=== PATIENT | female | born 1965 | race Caucasian/White ===

== ENCOUNTER 2017-08-04 11:35 | Inpatient (IN) | payer MEDICARE, MEDICAID ==
[2017-08-04 12:37] LABS: PTT 30.3 SEC (22.9-36.1)
[2017-08-04] MEDS ORDERED: Acetaminophen 500 MG TAB ONE (12:41)
[2017-08-04] MEDS ORDERED: Benzocaine 20% Spray 60 ML CAN ONE (12:41)
--- NOTE | 2017-08-04 12:41 | RAD ---
FRONTAL VIEW CHEST: COMPARISON: 04/20/17. INDICATION: Dyspnea. FINDINGS: There is no consolidation, effusion, or pneumothorax. Cardiomediastinal silhouette is accentuated b y portable technique. There is slight interstitial perihilar prominence bilaterally. IMPRESSION: 1. No lobar consolidation. 2. Mild perihilar interstitial prominence may be on the basis of edema. Correlate clinically. As necessary, imaging followup may be obtained. POS: ALYSSA
[2017-08-04 12:49] LABS: Lactic Acid - Sepsis 3.6 mmol/L (0.5-2.2)
[2017-08-04 12:51] LABS: Hematocrit 47.3 % (36.0-47.0); Mean Platelet Volume 8.4 fL (7.4-10.4); Red Blood Cell (RBC) Count 4.77 mill/uL (4.20-5.40); White Blood Cell (WBC) Count 17.1 thou/uL (4.8-10.8)
[2017-08-04 12:55] LABS: ALT (SGPT) 16 U/L (8-55); AST (SGOT) 13 U/L (5-34); Alkaline Phosphatase 105 U/L (40-150); Anion Gap 12 mmol/L (10-20); BUN (Urea Nitrogen) 12 mg/dL (9.8-20.1); Bilirubin, Total 0.6 mg/dL (0.2-1.2); CK (CPK) 38 U/L (29-168); Calc. Creatinine Clearance 0 mL/min (70-130); Calcium 9.7 mg/dL (7.8-10.44); Carbon Dioxide 25 mmol/L (22-29); Chloride 103 mmol/L (98-107); Estimated GFR-MDRD 69; Globulin 3.1 g/dL (2.4-3.5); Lipase 4 U/L (8-78); Magnesium 1.6 mg/dL (1.6-2.6); Protein, Total 6.8 g/dL (6.0-8.3)
[2017-08-04 12:59] LABS: Troponin I Less than 0.010 ng/mL (< 0.028)
[2017-08-04 13:04] LABS: Band 22 % (5-11); Neutrophil 70 % (42-75)
[2017-08-04] MEDS ORDERED: methylPREDNISolone Sod Succ/PF 125 MG/2 ML VIAL ONE (13:20)
[2017-08-04] MEDS ORDERED: Water For Inject, Bacteriostat 30 ML ONE (13:21)
[2017-08-04] MEDS ORDERED: Magnesium 2 GM/NS 0.9% 50 ML 2 GM in Premix Bag 1 BAG IVPB SCH ×4 (13:45)
[2017-08-04] MEDS ORDERED: Lidocaine Viscous Sol 2% 15 ml UD Cup ONE ×2 (15:11→15:12)
[2017-08-04] MEDS ORDERED: Mag-Al 1200 mg/1200 mg/30 ML UDCUP ONE (15:11)
[2017-08-04 15:29] LABS: Bilirubin Negative (Negative); Blood, Urine Small (Negative); Glucose, Urine (Dipstick) Negative (Negative); Ketone, Urine Negative (Negative); Nitrite Negative (Negative); Protein, Urine (Dipstick) Negative (Neg-Trace); Urobilinogen 0.2 mg/dL (0.2-1.0)
[2017-08-04 15:31] LABS: Hyaline Casts/LPF 4-6 HYALINE CAST LPF (0-3 Hyaline); Squamous Epithelial 0-3 HPF (0-3)
[2017-08-04 15:41] LABS: Bacteria/HPF 1+ HPF (None Seen)
[2017-08-04 16:27] VITALS: BMI 30.9
[2017-08-04] MEDS ORDERED: Albuterol Sulfate 2.5 mg/3 ml Neb NEB PRN (16:39)
[2017-08-04] MEDS ORDERED: Acetaminophen 325 MG TAB PO PRN ×2 (16:40→16:41)
[2017-08-04] MEDS: Sodium Chloride 0.9% 1,000 ML IV SCH ×2 (16:56→17:59)
[2017-08-04] MEDS ORDERED: Cefepime 2 GM, Admixture Fee 1 EACH in Sodium Chloride 0.9% 100 ML IVPB SCH (17:00)
[2017-08-04] MEDS: traZODone HCl 50 MG TAB PO SCH (20:30)
[2017-08-04] MEDS: clonazePAM 0.5 MG TAB PO SCH (20:30)
[2017-08-04] MEDS: busPIRone HCl 5 MG TAB PO SCH (20:30)
[2017-08-04] MEDS: Benzonatate 100 MG CAP PO SCH (20:31)
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
[2017-08-04] MEDS: Cefepime 2 GM, Admixture Fee 1 EACH in Sodium Chloride 0.9% 100 ML IVPB SCH (22:36)
[2017-08-05] MEDS: Sodium Chloride 0.9% 1,000 ML IV SCH ×4 (02:35→22:43)
[2017-08-05 05:33] LABS: ALT (SGPT) 13 U/L (8-55); AST (SGOT) 12 U/L (5-34); Alkaline Phosphatase 89 U/L (40-150); Anion Gap 7 mmol/L (10-20); BUN (Urea Nitrogen) 12 mg/dL (9.8-20.1); Bilirubin, Total 0.2 mg/dL (0.2-1.2); Calc. Creatinine Clearance 125 mL/min (70-130); Calcium 9.1 mg/dL (7.8-10.44); Carbon Dioxide 23 mmol/L (22-29); Chloride 116 mmol/L (98-107); Estimated GFR-MDRD 88; Globulin 2.6 g/dL (2.4-3.5); Protein, Total 5.5 g/dL (6.0-8.3)
[2017-08-05 05:56] LABS: Band 36 % (5-11); Hematocrit 43.1 % (36.0-47.0); Mean Platelet Volume 8.6 fL (7.4-10.4); Neutrophil 58 % (42-75); Red Blood Cell (RBC) Count 4.35 mill/uL (4.20-5.40); White Blood Cell (WBC) Count 15.8 thou/uL (4.8-10.8)
[2017-08-05] MEDS: Cefepime 2 GM, Admixture Fee 1 EACH in Sodium Chloride 0.9% 100 ML IVPB SCH ×3 (07:21→22:42)
[2017-08-05] MEDS: busPIRone HCl 5 MG TAB PO SCH ×2 (08:51→20:35)
[2017-08-05] MEDS: Acetaminophen/Codeine 30-300mg Tablet PO PRN ×4 (08:51→20:34)
[2017-08-05] MEDS: clonazePAM 0.5 MG TAB PO SCH ×2 (08:51→20:35)
[2017-08-05] MEDS: guaiFENesin ER 600 MG TAB PO SCH ×2 (08:52→20:34)
[2017-08-05] MEDS: Benzonatate 100 MG CAP PO SCH ×3 (09:00→20:33)
[2017-08-05] MEDS ORDERED: FLU VACC QS2017-18 36 mo. & older 0.5 ML SYRINGE IM ONE (09:00)
--- NOTE | 2017-08-05 10:21 | RAD ---
ONE VIEW CHEST: HISTORY: Pneumonia. COMPARISON: 08/04/2017 FINDINGS: Worsening of bibasilar opacities. Stable cardiac silhouette. No significant pleural fluid or pneum othorax. IMPRESSION: Bibasilar opacities. Continued surveillance. POS: EFRAINH
--- NOTE | 2017-08-05 14:24 | PQF ---
DATE: 08-08-17 ATTN: JOSE STEVENS / DR. COSTA JAIN Please exercise your independent, professional judgment in responding to the clarification form. Clinical indicators are provided on the bottom of this form for your review Please check appropriate box(s) to clarify if the following diagnosis has been ruled in our ruled out: SEVERE SEPSIS (CDI/Coding list diagnosis here) [ x ] Ruled in diagnosis [ x ] Continue to treat [ ] Resolved [ ] Ruled out diagnosis [ ] Other diagnosis [ ] Unable to determine In addition, please specify: Present on Admission (POA): [ x ] Yes [ ] No [ ] Unable to determine For continuity of documentation, please document condition throughout progress notes and discharge summary. Thank You. CLINICAL INDICATORS - SIGNS / SYMPTOMS / LABS ER DIAGNOSIS: SEVERE SEPSIS, PNEUMONIA WBC: 08-04-17: 17.1 08-05-17: 15.8 BANDS: 08-04-17: 22 08-05-17: 36 LACTIC ACID: 08-04-17: 3.6 08-05-17: 2.4 GLUCOSE ON A NON DIABETIC: 08-04-17: 123 08-05-17: 158 RISK FACTORS: H&P: UPPER RESPIRATORY INFECTION, PROBABLE PNEUMONIA, HX OF COPD, TREATMENTS: (08-04-17) MAXIPIME, (08-05-17) LEVAQUIN (08-04-17) IVF (This form is maintained as a part of the permanent medical record) 2014 [employer] All Rights Reserved [email or web address] Office: [phone] [facility]
[2017-08-05] MEDS ORDERED: predniSONE 20 MG TAB PO SCH (15:45)
[2017-08-05] MEDS: traZODone HCl 50 MG TAB PO SCH (20:35)
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
[2017-08-06] MEDS: Acetaminophen/Codeine 30-300mg Tablet PO PRN ×5 (01:46→18:47)
[2017-08-06 05:17] LABS: Anion Gap 9 mmol/L (10-20); BUN (Urea Nitrogen) 12 mg/dL (9.8-20.1); Calc. Creatinine Clearance 134 mL/min (70-130); Calcium 8.7 mg/dL (7.8-10.44); Carbon Dioxide 21 mmol/L (22-29); Chloride 115 mmol/L (98-107); Estimated GFR-MDRD Greater than 90
[2017-08-06 05:36] LABS: Band 10 % (5-11); Hematocrit 36.2 % (36.0-47.0); Neutrophil 74 % (42-75); Reactive Lymphocytes 1 % (0-10); Red Blood Cell (RBC) Count 3.79 mill/uL (4.20-5.40); White Blood Cell (WBC) Count 15.1 thou/uL (4.8-10.8)
[2017-08-06] MEDS: Cefepime 2 GM, Admixture Fee 1 EACH in Sodium Chloride 0.9% 100 ML IVPB SCH ×2 (05:54→16:13)
[2017-08-06] MEDS: clonazePAM 0.5 MG TAB PO SCH ×2 (07:59→21:05)
[2017-08-06] MEDS: Benzonatate 100 MG CAP PO SCH ×3 (07:59→21:05)
[2017-08-06] MEDS: busPIRone HCl 5 MG TAB PO SCH ×2 (07:59→21:05)
[2017-08-06] MEDS: guaiFENesin ER 600 MG TAB PO SCH ×2 (07:59→21:05)
[2017-08-06] MEDS: predniSONE 20 MG TAB PO SCH (07:59)
[2017-08-06] MEDS: Sodium Chloride 0.9% 1,000 ML IV SCH ×2 (08:01→17:50)
--- NOTE | 2017-08-06 08:07 | RAD ---
PORTABLE CHEST ONE VIEW: Date: 08-06-17 Time: 5:04 a.m. History: Pneumonia. FINDINGS/IMPRESSION: Comparison made with exam of previous day. The heart size is normal. Bilateral infiltrates are again seen. No pneumothorax or large effusions i dentified. POS: H
--- NOTE | 2017-08-06 08:22 | PRG ---
DATE OF SERVICE: 08/06/2017 SUBJECTIVE: The patient is sitting up in bed. She is eating breakfast, she feels much better. She does not have O2 on. PHYSICAL EXAMINATION: VITAL SIGNS: Her heart rate is still high at 120, but her blood pressure is good at 120 GENERAL: Upon evaluation, she is awake, alert, and oriented to person, place, and time. She is afe brile. NECK: Supple with no increased JVP or carotid bruit. Carotid had good upstroke with no thyromegaly . COR: Regular rate and rhythm, but tachycardic. CHEST: Symmetrical with a few wheezing. ABDOMEN: Soft, nontender with normoactive bowel sounds. There is no bruit or organomegaly. EXTREMITIES: No edema or cyanosis. She had palpable pedal pulses. SKIN: There is no evidence of ulcer lesion, or rash. NEUROLOGIC: She is awake and alert and oriented to person, place, and time. LABORATORY DATA: Her white blood cells 15.1. Her H\T\H is 11.8 and 36.2. Her platelet count is 24 2. Her glucose is 140. Chest x-ray is pending. ASSESSMENT: 1. Pneumonia. 2. Chronic obstructive pulmonary disease. 3. Bipolar. 4. Anxiety disorder. PLAN: 1. The patient will continue as is. 2. We will follow up with a CBC and CMP in the morning. 3. I have encouraged patient to get out of bed. 4. The case discussed with Dr. aMurice Garza and he does agree with the plan.
[2017-08-06] MEDS: Ondansetron HCl/PF 4 MG/2 ML Vial SLOW IVP PRN (10:58)
[2017-08-06] MEDS: Cefdinir 300 MG CAP PO SCH (21:06)
[2017-08-06] MEDS: traZODone HCl 50 MG TAB PO SCH (21:06)
[2017-08-07] MEDS: Acetaminophen/Codeine 30-300mg Tablet PO PRN ×5 (00:52→20:40)
[2017-08-07] MEDS: Sodium Chloride 0.9% 1,000 ML IV SCH ×3 (04:40→11:21)
[2017-08-07 05:17] LABS: ALT (SGPT) 9 U/L (8-55); AST (SGOT) 8 U/L (5-34); Alkaline Phosphatase 74 U/L (40-150); Anion Gap 9 mmol/L (10-20); BUN (Urea Nitrogen) 9 mg/dL (9.8-20.1); Bilirubin, Total 0.2 mg/dL (0.2-1.2); Calc. Creatinine Clearance 149 mL/min (70-130); Calcium 8.2 mg/dL (7.8-10.44); Carbon Dioxide 21 mmol/L (22-29); Chloride 114 mmol/L (98-107); Estimated GFR-MDRD Greater than 90; Globulin 2.3 g/dL (2.4-3.5)
[2017-08-07 05:28] LABS: Hematocrit 35.7 % (36.0-47.0); Mean Platelet Volume 8.2 fL (7.4-10.4); Neutrophil 70 % (42-75); Red Blood Cell (RBC) Count 3.68 mill/uL (4.20-5.40); White Blood Cell (WBC) Count 16.5 thou/uL (4.8-10.8)
[2017-08-07] MEDS: Potassium Chloride 20 MEQ TAB PO SCH (08:33)
[2017-08-07] MEDS: guaiFENesin ER 600 MG TAB PO SCH ×2 (08:33→20:40)
[2017-08-07] MEDS: clonazePAM 0.5 MG TAB PO SCH ×2 (08:34→20:39)
[2017-08-07] MEDS: Cefdinir 300 MG CAP PO SCH ×2 (08:34→20:40)
[2017-08-07] MEDS: predniSONE 20 MG TAB PO SCH (08:34)
[2017-08-07] MEDS: Benzonatate 100 MG CAP PO SCH ×3 (08:34→20:41)
[2017-08-07] MEDS: busPIRone HCl 5 MG TAB PO SCH ×2 (08:34→20:41)
[2017-08-07] MEDS: Ondansetron HCl/PF 4 MG/2 ML Vial SLOW IVP PRN (09:58)
[2017-08-07] MEDS ORDERED: Polyethylene Glycol 3350 17 GM Packet PO SCH (11:15)
--- NOTE | 2017-08-07 15:42 | PRG ---
DATE OF SERVICE: 08/07/2017 SUBJECTIVE: Ms. Mott says she is feeling better. OBJECTIVE: VITAL SIGNS: She is afebrile, heart rate is 93, respiratory rate is 20, oximetry is 97%, blood pres sure 120/86. LUNGS: Clear. HEART: Regular rhythm. LABORATORY: White count 16.5, hemoglobin 11.9, platelets 171,000. Sodium 141, potassium 3.2, chlor stew 114, bicarb 21, BUN 9, creatinine 0.6, glucose 111, and albumin is 2.7. IMPRESSION: 1. Chronic obstructive pulmonary disease exacerbation with pneumonia 2. Ongoing tobacco use up until this admission. PLAN: Continue current care.
[2017-08-07] MEDS: traZODone HCl 50 MG TAB PO SCH (20:39)
[2017-08-08] MEDS: Acetaminophen/Codeine 30-300mg Tablet PO PRN ×2 (01:19→06:54)
[2017-08-08 06:43] LABS: Anion Gap 9 mmol/L (10-20); BUN (Urea Nitrogen) 10 mg/dL (9.8-20.1); Calc. Creatinine Clearance 157 mL/min (70-130); Calcium 8.1 mg/dL (7.8-10.44); Carbon Dioxide 27 mmol/L (22-29); Chloride 109 mmol/L (98-107); Estimated GFR-MDRD Greater than 90
[2017-08-08 06:44] LABS: Hematocrit 34.7 % (36.0-47.0); Mean Platelet Volume 7.6 fL (7.4-10.4); Red Blood Cell (RBC) Count 3.67 mill/uL (4.20-5.40); White Blood Cell (WBC) Count 12.5 thou/uL (4.8-10.8)
[2017-08-08 07:48] LABS: Band 5 % (5-11); Metamyelocyte 1 % (0-0); Myelocyte 2 % (0-0); Neutrophil 52 % (42-75); Reactive Lymphocytes 9 % (0-10)
--- NOTE | 2017-08-08 08:16 | RAD ---
RADIOGRAPH CHEST 1 VIEW: Date: 08-08-17 Time: 6:30 a.m. HISTORY: 52-year-old female with pneumonia. Follow up. COMPARISON: 08-06-17 FINDINGS: Bilateral patchy airspace densities, greatest at the lower lung zones, have worsened. A few small no dular infiltrates in the upper and midlung zones are minimally worse. No cardiomegaly. No pneumothor ax. IMPRESSION: Interval worsening of bilateral lower lung zone infiltrates, evidence for worsening of pneumonia. ROLANDO POS: ALYSSA
[2017-08-08 08:18] VITALS: BP 140/90; TEMP 98.1
[2017-08-08] MEDS ORDERED: Potassium Chloride 20 MEQ TAB PO SCH (08:30)
[2017-08-08] MEDS: Benzonatate 100 MG CAP PO SCH (08:32)
[2017-08-08] MEDS: predniSONE 20 MG TAB PO SCH (08:32)
[2017-08-08] MEDS: clonazePAM 0.5 MG TAB PO SCH (08:32)
[2017-08-08] MEDS: busPIRone HCl 5 MG TAB PO SCH (08:32)
[2017-08-08] MEDS: Potassium Chloride 20 MEQ TAB PO SCH (08:32)
[2017-08-08] MEDS: Cefdinir 300 MG CAP PO SCH (08:32)
[2017-08-08] MEDS: guaiFENesin ER 600 MG TAB PO SCH (08:33)
[2017-08-08] MEDS ORDERED: Polyethylene Glycol 3350 17 GM Packet PO SCH (09:00)
--- NOTE | 2017-08-08 09:52 | DIS ---
FINAL DIAGNOSES: 1. Pneumonia. 2. Chronic obstructive pulmonary disease. 3. Bipolar. 4. Anxiety. 5. Insomnia. COMPLICATIONS: None. PROCEDURES: None. CONSULTANTS: Dr. Phan. HOSPITAL COURSE: This is a pleasant female who presents with upper respiratory infection. She also was found to have hypotension and possible sepsis and therefore transferred to [facility] after given 2 l iters of fluid in the ER. The patient was admitted with IV antibiotics, IV fluids and breathing maximo atments. Dr. Phan was asked to see the patient in consultation. She did have obviously a chest x- ray which showed bibasilar opacities. The patient's home medications were resumed. The patient's b lood pressure remained normal. She was later transferred out of [facility] to the 4th floor. The patient was eating good. Her vital signs were stable. She was switched to antibiotics by mouth. Her lab upon admission showed white blood cells 17.1 upon dismissal was 12.5. Her H\T\H is normal. Her CMP showed her sodium 142, potassium 3.7, BUN and creatinine were normal and upon dismissal, her potass ium was 3.2; however, this was replenished before she left. The patient's hospital course was unrem arkable. She had no chest pain, her breathing was okay. Her vital signs were stable. She felt muc h better. She was not running a temperature and she was sent home on 08/08/2017 stable condition. DIET: Regular diet. ACTIVITIES: As tolerated. DISCHARGE MEDICATIONS: 1. Levaquin 500 mg every day for 10 days. 2. Medrol Dosepak. 3. Mucinex 1200 mg q.12 hours. 4. Protonix 40 mg every day. 5. MiraLax daily. 6. Potassium 20 mEq was discontinued. 7. Seroquel 100 mg at bedtime. 8. Trazodone 100 mg at bedtime. FOLLOWUP: She will follow up with Radha in 1 week or prior to that if she has any complications. The patient verbalized understanding and all questions answered to the patient's satisfaction. Total time spent with this patient after reviewing the chart and seeing the patient and discharge pl anning was 30 minutes.
== END 2017-08-08 09:52 | disposition home or self-care (01) | DRG 871 ==
LOC: ERS 11:35 → IMCU/EMU 14:42 → T4-A 08-06 18:37
PROVIDERS: ADMIT Specialist; ATTEND Specialist
DX: A41.9 Sepsis, unspecified organism (principal); J18.9 Pneumonia, unspecified organism; E87.2 Acidosis; I95.9 Hypotension, unspecified; J44.0 Chronic obstructive pulmonary disease with (acute) lower respiratory infection; E86.0 Dehydration; J44.1 Chronic obstructive pulmonary disease with (acute) exacerbation; F41.9 Anxiety disorder, unspecified; F31.9 Bipolar disorder, unspecified; M54.9 Dorsalgia, unspecified; M25.569 Pain in unspecified knee; F17.210 Nicotine dependence, cigarettes, uncomplicated; G47.00 Insomnia, unspecified; R65.20 Severe sepsis without septic shock; Z23 Encounter for immunization
CPT/HCPCS: 36415; 71010; 80048; 80053; 81003; 81015; 82553; 83605; 83690; 83735; 84484; 85007; 85025; 85027; 85610; 85730; 87040; 87070; 87077; 87086; 87186; 87205; 93005; 94640; 94760; 96361; 96365; 96367; 96375; 99292; A4216; J0692; J1956; J2405; J2930; J3475; J7050; J7506; J7620

== ENCOUNTER 2017-10-20 11:51 | Emergency (ER) | payer MEDICARE, MEDICAID ==
[2017-10-20] MEDS ORDERED: HYDROcodone/Acetaminophen 5/325 mg Tablet ONE ×2 (12:17→13:11)
--- NOTE | 2017-10-20 14:15 | RAD ---
RIGHT HAND THREE VIEWS: HISTORY: Injury with pain. FINDINGS: There is transverse fracture involving the distal radius, which appears to be mildly comminuted. The carpals appear intact. The metacarpals and phalanges appear intact. IMPRESSION: Fractured distal radius. POS: EFRAIN
--- NOTE | 2017-10-20 14:16 | RAD ---
RIGHT WRIST TWO VIEWS: HISTORY: Injury with pain to right wrist. FINDINGS: There is a predominantly transverse but mildly comminuted fracture involving the distal radius. There is an associated fracture of the ulnar styloid. The carpals appear intact. IMPRESSION: Fractured distal radius and ulna. POS: [facility]
--- NOTE | 2017-10-20 14:17 | RAD ---
RIGHT FOREARM TWO VIEWS: HISTORY: Fell with injury to right forearm. FINDINGS: There is a transverse fracture of the distal radius and an associated fracture of the ulnar styloid. The mid and proximal radius and ulna appear intact. IMPRESSION: Fractures, distal radius and ulna. POS: EFRAIN
== END 2017-10-20 13:14 | disposition home or self-care (01) ==
LOC: ERS 11:51
DX: S52.531A Colles' fracture of right radius, initial encounter for closed fracture (principal); F41.9 Anxiety disorder, unspecified; F32.9 Major depressive disorder, single episode, unspecified; F17.210 Nicotine dependence, cigarettes, uncomplicated; Z87.01 Personal history of pneumonia (recurrent); W10.9XXA Fall (on) (from) unspecified stairs and steps, initial encounter
CPT/HCPCS: 29125

== ENCOUNTER 2019-04-20 11:24 | Outpatient (CLI) | payer MEDICARE, MEDICAID ==
--- NOTE | 2019-04-20 13:01 | MMO ---
Bilateral MAMMO Bilat Screen [facility]. CLINICAL HISTORY: Patient is 53 years old and is seen for screening. The patient has the following family history of breast cancer: mother, at age 67. The patient has no personal history of cancer. VIEWS: The views performed were: bilateral craniocaudal with tomosynthesis and bilateral mediolateral oblique with tomosynthesis. FILMS COMPARED: The present examination has been compared to a prior imaging study performed at [facility] on 02/05/2012. MAMMOGRAM FINDINGS: There are scattered fibroglandular densities. There are no suspicious masses, suspicious calcifications, or new areas of architectural distortion. IMPRESSION: THERE IS NO MAMMOGRAPHIC EVIDENCE OF MALIGNANCY. A ROUTINE FOLLOW-UP MAMMOGRAM IN 1 YEAR IS RECOMMENDED. THE RESULTS OF THIS EXAM WERE SENT TO THE PATIENT. ACR BI-RADS Category 1 - Negative MAMMOGRAPHY NOTE: 1. A negative mammogram report should not delay a biopsy if a dominant of clinically suspicious mass is present. 2. Approximately 10% to 15% of breast cancers are not detected by mammography. 3. Adenosis and dense breasts may obscure an underlying neoplasm.
== END 2019-04-20 11:25 | disposition home or self-care (01) ==
LOC: BICMAMMO 11:24
PROVIDERS: ATTEND Specialist
DX: Z12.31 Encounter for screening mammogram for malignant neoplasm of breast (principal); Z80.3 Family history of malignant neoplasm of breast
CPT/HCPCS: 77063; 77067

== ENCOUNTER 2022-06-10 07:27 | Inpatient (IN) | payer MEDICARE, MEDICAID ==
[2022-06-10] MEDS ORDERED: Ketorolac Tromethamine 30 MG/ML VIAL ONE (07:45)
[2022-06-10] MEDS ORDERED: Albuterol Sulfate 2.5 mg/3 ml Neb ONE (08:16)
[2022-06-10] MEDS ORDERED: Ipratropium Bromide 2.5 ml Neb ONE (08:16)
[2022-06-10 08:35] LABS: #Lymphocytes 1.7 thou/uL (1.20-3.40); #Monocytes 0.5 thou/uL (0.11-0.59); #Neutrophils 6.7 thou/uL (1.40-6.50); %Eosinophils 0.2 % (0.0-10.0); %Lymphocytes 19.1 % (21.0-51.0); %Monocytes 5.5 % (0.0-10.0); %Neutrophils 75.2 % (42.0-75.0); Hemoglobin 15.7 g/dL (12.0-16.0); Mean Corpuscular HGB CONC 32.4 g/dL (32.0-36.0); Mean Corpuscular Hemoglobin 30.5 pg (27.0-31.0); Mean Corpuscular Volume 94.1 fL (78.0-98.0); Mean Platelet Volume 8.1 fL (7.4-10.4); Platelet Count 186 thou/uL (130-400); RBC Distribution Width 12.7 % (11.5-14.5); Red Blood Cell (RBC) Count 5.17 mill/uL (4.20-5.40); White Blood Cell (WBC) Count 8.9 thou/uL (4.8-10.8)
[2022-06-10 08:56] LABS: SARS-CoV-2 NAA Rapid Test Not Detected (NotDetected)
[2022-06-10 08:58] LABS: ALT (SGPT) 99 U/L (8-55); AST (SGOT) 63 U/L (5-34); Albumin 3.7 g/dL (3.5-5.0); Alkaline Phosphatase 143 U/L (40-110); Anion Gap 18 mmol/L (10-20); BUN (Urea Nitrogen) 8 mg/dL (9.8-20.1); Bilirubin, Total 0.4 mg/dL (0.2-1.2); Calc. Creatinine Clearance 0 mL/min (70-130); Calcium 8.5 mg/dL (7.8-10.44); Carbon Dioxide 23 mmol/L (22-29); Chloride 97 mmol/L (98-107); Estimated GFR 89; Globulin 3.6 g/dL (2.4-3.5); Glucose 113 mg/dL (70-105); Potassium 4.2 mmol/L (3.5-5.1); Protein, Total 7.3 g/dL (6.0-8.3); Sodium 134 mmol/L (136-145)
[2022-06-10] MEDS ORDERED: Dexamethasone 10 MG/ML VIAL ONE (10:53)
[2022-06-10] MEDS ORDERED: Acetaminophen 500 MG TAB ONE (10:54)
[2022-06-10] MEDS ORDERED: Iopamidol-370 76% 500 ML 1 ML ONE (15:42)
[2022-06-10] MEDS ORDERED: Acetaminophen 325 MG TAB PO PRN (16:45)
[2022-06-10] MEDS ORDERED: Sodium Chloride 0.9% 1,000 ML IV SCH (16:45)
[2022-06-10] MEDS ORDERED: Ondansetron ODT 4 MG TAB SL PRN (16:45)
[2022-06-10] MEDS ORDERED: Ondansetron PF 4 MG/2 ML Vial IVP PRN (16:45)
[2022-06-10 17:39] VITALS: BMI 39.6
[2022-06-10] MEDS ORDERED: Dextrose 5% in Water 1,000 ML IV PRN (20:15)
[2022-06-10] MEDS ORDERED: Dextrose 50% Abboject 50 ML SYRINGE IVP PRN (20:15)
[2022-06-10] MEDS ORDERED: HumaLOG 300 UNITS/3 ML VIAL SC PRN (20:15)
[2022-06-10] MEDS: Doxepin HCl 25 MG CAP PO SCH (20:53)
[2022-06-10] MEDS: ALPRAZolam 0.25 MG TAB PO SCH (20:53)
[2022-06-10] MEDS: Empagliflozin 25 MG TAB PO SCH (20:58)
[2022-06-10] MEDS ORDERED: Budesonide 0.5 MG/2 ML NEB NEB SCH (22:00)
[2022-06-10] MEDS: Nicotine 14 MG PATCH TOP SCH (22:24)
[2022-06-11] MEDS: Promethazine 25 MG TAB PO PRN (06:24)
[2022-06-11] MEDS: Budesonide 0.5 MG/2 ML NEB NEB SCH ×2 (06:34→18:26)
[2022-06-11 07:50] LABS: #Lymphocytes 1.6 thou/uL (1.20-3.40); #Monocytes 0.7 thou/uL (0.11-0.59); #Neutrophils 6.2 thou/uL (1.40-6.50); %Basophils 0.3 % (0.0-1.0); %Eosinophils 0.4 % (0.0-10.0); %Lymphocytes 18.5 % (21.0-51.0); %Monocytes 7.8 % (0.0-10.0); %Neutrophils 73.1 % (42.0-75.0); Mean Corpuscular HGB CONC 31.5 g/dL (32.0-36.0); Mean Corpuscular Hemoglobin 29.8 pg (27.0-31.0); Mean Corpuscular Volume 94.6 fL (78.0-98.0); Mean Platelet Volume 8.1 fL (7.4-10.4); Platelet Count 191 thou/uL (130-400); RBC Distribution Width 12.9 % (11.5-14.5); Red Blood Cell (RBC) Count 5.02 mill/uL (4.20-5.40); White Blood Cell (WBC) Count 8.5 thou/uL (4.8-10.8)
[2022-06-11 08:09] LABS: Hemoglobin A1c 9.9 % (4.0-6.0)
[2022-06-11 08:13] LABS: ALT (SGPT) 70 U/L (8-55); AST (SGOT) 33 U/L (5-34); Albumin 3.6 g/dL (3.5-5.0); Alkaline Phosphatase 116 U/L (40-110); Anion Gap 15 mmol/L (10-20); BUN (Urea Nitrogen) 12 mg/dL (9.8-20.1); Bilirubin, Direct 0.1 mg/dL (0.1-0.3); Bilirubin, Total 0.4 mg/dL (0.2-1.2); Calc. Creatinine Clearance 158 mL/min (70-130); Calcium 8.4 mg/dL (7.8-10.44); Carbon Dioxide 23 mmol/L (22-29); Chloride 103 mmol/L (98-107); Estimated GFR 102; Glucose 109 mg/dL (70-105); Potassium 4.1 mmol/L (3.5-5.1); Protein, Total 7.3 g/dL (6.0-8.3); Sodium 137 mmol/L (136-145)
[2022-06-11] MEDS ORDERED: Benzonatate 100 MG CAP PO PRN (08:15)
[2022-06-11 08:29] LABS: Free T4 (Free Thyroxine) 0.76 ng/dL (0.70-1.48)
[2022-06-11 08:30] LABS: T4 6.6 ug/dL (4.87-11.72)
[2022-06-11 08:45] LABS: HBCM Index 0.11 S/CO (0-0.79); HBSAg Index 0.33 S/CO (0-0.99); Hep A IgM AB Non-Reactive (NonReactive); Hep A IgM S/CO 0.15 S/CO (0-0.79); Hep B Surf Ag Non-Reactive S/CO (NonReactive); Hep C IgG Ab Non-Reactive (NonReactive); Hep C Index 0.15 S/CO (0-0.79); Hepatitis B Core IgM Abs Non-Reactive (NonReactive)
[2022-06-11] MEDS ORDERED: Empagliflozin 25 MG TAB PO SCH (09:00)
[2022-06-11] MEDS: guaiFENesin ER 600 MG TAB PO SCH ×2 (10:06→22:16)
[2022-06-11] MEDS: Aspirin Chewable 81 MG TAB PO SCH (10:06)
[2022-06-11] MEDS: ALPRAZolam 0.25 MG TAB PO SCH ×3 (10:06→22:16)
[2022-06-11] MEDS: methylPREDNISolone Sod Succ 40 MG VIAL IVP SCH ×3 (12:48→22:24)
[2022-06-11] MEDS: Acetaminophen 500 MG TAB PO PRN ×2 (16:01→22:19)
[2022-06-11] MEDS: Empagliflozin 25 MG TAB PO SCH (22:16)
[2022-06-11] MEDS: Doxepin HCl 25 MG CAP PO SCH (22:16)
[2022-06-11] MEDS: Nicotine 14 MG PATCH TOP SCH (22:17)
[2022-06-12] MEDS: methylPREDNISolone Sod Succ 40 MG VIAL IVP SCH ×4 (06:20→22:56)
[2022-06-12] MEDS: Budesonide 0.5 MG/2 ML NEB NEB SCH ×2 (06:22→19:07)
[2022-06-12] MEDS: ALPRAZolam 0.25 MG TAB PO SCH ×3 (09:43→20:19)
[2022-06-12] MEDS: Aspirin Chewable 81 MG TAB PO SCH (09:43)
[2022-06-12] MEDS: guaiFENesin ER 600 MG TAB PO SCH ×2 (09:43→20:19)
[2022-06-12] MEDS: Acetaminophen 500 MG TAB PO PRN ×2 (10:02→17:39)
[2022-06-12 15:31] LABS: ANA Symphony (Qualitative) Negative (Negative); ANA Symphony (Quantitative) 0.4 Ratio (< 0.7 Negative); EliA Vaculitis New Method **** NEW METHOD ****; Mitochondrial Ab 1.7 U/mL (<4 Negative); dsDNA IgG Antibody 5.3 IU/mL (<10 Negative)
[2022-06-12] MEDS: Empagliflozin 25 MG TAB PO SCH (20:19)
[2022-06-12] MEDS: Doxepin HCl 25 MG CAP PO SCH (20:19)
[2022-06-12] MEDS: SUMAtriptan Succinate 6 MG/0.5 ML VIAL SC PRN (20:19)
[2022-06-12] MEDS: Nicotine 14 MG PATCH TOP SCH (22:55)
[2022-06-13] MEDS: Acetaminophen 500 MG TAB PO PRN ×2 (00:39→09:31)
[2022-06-13] MEDS: SUMAtriptan Succinate 6 MG/0.5 ML VIAL SC PRN (05:12)
[2022-06-13] MEDS: methylPREDNISolone Sod Succ 40 MG VIAL IVP SCH (05:12)
[2022-06-13] MEDS: Promethazine 25 MG TAB PO PRN (06:20)
[2022-06-13] MEDS: Budesonide 0.5 MG/2 ML NEB NEB SCH (06:54)
[2022-06-13] MEDS: Aspirin Chewable 81 MG TAB PO SCH (08:05)
[2022-06-13] MEDS: ALPRAZolam 0.25 MG TAB PO SCH (08:05)
[2022-06-13] MEDS: guaiFENesin ER 600 MG TAB PO SCH (08:05)
[2022-06-13 08:20] VITALS: BP 147/95; TEMP 97.7
== END 2022-06-13 10:50 | disposition home or self-care (01) | DRG 441 ==
LOC: ERS 07:27 → 2SW 15:07 → OBSVTOIN 19:52
PROVIDERS: ADMIT Specialist; ATTEND Specialist
DX: K75.81 Nonalcoholic steatohepatitis (NASH) (principal); J96.21 Acute and chronic respiratory failure with hypoxia; J44.1 Chronic obstructive pulmonary disease with (acute) exacerbation; Z20.822 Contact with and (suspected) exposure to COVID-19; E11.9 Type 2 diabetes mellitus without complications; F41.9 Anxiety disorder, unspecified; F17.210 Nicotine dependence, cigarettes, uncomplicated; F31.9 Bipolar disorder, unspecified; G89.29 Other chronic pain; G47.00 Insomnia, unspecified; Z87.440 Personal history of urinary (tract) infections; Z90.49 Acquired absence of other specified parts of digestive tract; Z90.710 Acquired absence of both cervix and uterus; Z88.8 Allergy status to other drugs, medicaments and biological substances; Z79.899 Other long term (current) drug therapy; Z63.5 Disruption of family by separation and divorce; Z79.4 Long term (current) use of insulin; Z79.82 Long term (current) use of aspirin
CPT/HCPCS: 36415; 36416; 71045; 71046; 71275; 76705; 80048; 80053; 80074; 80076; 82105; 82390; 82728; 83036; 83516; 83550; 83880; 84436; 84439; 84443; 84479; 84481; 84484; 85025; 86015; 86038; 86225; 93005; 94640; 94644; 96361; 96374; 96375; G0378; J1100; J1815; J1885; J1956; J2920; J3030; J7050; J7611; J7620; J7626; Q0169; Q9967; U0002